=== PATIENT | female | born 1980 | race African-American/Black ===

== ENCOUNTER 2025-02-07 10:48 | Emergency (ER) | payer OTHER, SELFPAY ==
--- NOTE | ~2025-02-07 | XR_ITS ---
EXAMINATION: XR CHEST 2 VIEWS HISTORY: CP COMPARISON: There are no prior studies for comparison. FINDINGS: PA and lateral views of the chest are submitted. The lungs are expanded and clear. There is no pleural effusion, pneumothorax, or pulmonary vascular congestion. The heart is normal in size. The bones are intact. XR/XR chest 2V IMPRESSION: Normal examination of the chest. Electronically signed by: Jose Guadalupe Lemon MD 02/07/2025 11:59 AM EDT
--- NOTE | 2025-02-07 10:52 | ECG_ITS ---
Test Reason : CHEST PAIN Blood Pressure : */* mmHG Vent. Rate : 80 BPM Atrial Rate : 80 BPM P-R Int : 162 ms QRS Dur : 98 ms QT Int : 358 ms P-R-T Axes : 56 1 28 degrees QTcB Int : 412 ms Normal sinus rhythm Minimal voltage criteria for LVH, may be normal variant ( [place] product ) Borderline ECG When compared with ECG of 26-Jun-2012 10:56, No significant changes seen Referred By: Generic ED Physician Electronically Signed By: DAR CODY
[2025-02-07 11:18] VITALS: BP 138/83; PULSE 76; RESP 16; TEMP 36.6; O2SAT 99; BMI 36.3
--- NOTE | 2025-02-07 11:18 | ED_ITS ---
HPI - SOB/Dyspnea General Chief Complaint: General Medical Stated Complaint: Shortness Of Breath, Chest Pain Time Seen by Provider: 02/07/25 17:51 Source: patient Mode of arrival: ambulatory Limitations: no limitations History of Present Illness ED Provider: DR. Elias HPI Narrative: 44-year-old female otherwise healthy presented with neck pain radiating to the right shoulder for the past few weeks, declined any trauma or heavy lifting recently however patient stated that she go to chiropractor for scoliosis and she had recent neck manipulation by the chiropractor and the pain is been worse since then. 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 No history of smoking, asthma, or COPD. Related Data Previous Rx's ?Medication ?Instructions ?Recorded ibuprofen 600 mg tablet 600 mg PO Q6H PRN pain #14 tabs 02/07/25 Allergies Allergy/AdvReac Type Severity Reaction Status Date / Time lisinopril AdvReac Cough Verified 02/07/25 11:21 seasonal allergies Allergy Unknown Itching Uncoded 02/07/25 11:21 Review of Systems 2 Review of Systems: All other systems are reviewed and are negative Constitutional: Reports as per HPI and Reports no additional constitutional complaints Eyes: Reports as per HPI and Reports no additional eye complaints Reports system reviewed and no additional complaints, except as documented Cardiovascular: Reports as per HPI and Reports no additional cardiovascular complaints Respiratory: Reports as per HPI and Reports no additional respiratory complaints Gastrointestinal: Reports as per HPI and Reports no additional gastrointestinal complaints Genitourinary: Reports no additional female genitourinary complaints Musculoskeletal: Reports no additional musculoskeletal complaints Skin/Breast: Reports system reviewed and no additional complaints, except as docu Psychiatric: Reports no additional psychiatric complaints Endocrine: Reports no additional endocrine complaints Hematologic/Lymphatic: Reports no additional hematologic/lymphatic complaints Allergic/Immunologic: Reports no additional allergic/immunologic complaints Reports system reviewed and no additional complaints, except as documented and Reports Abnormal speech present [facility] Social History Social History Advance Directives: No Advance Directives Information Provided: Yes Physical Exam 2 Vital Signs: Vital Signs: Last Vital Signs Temp 97.9 F 02/07/25 16:44 Pulse 93 02/07/25 16:44 Resp 16 02/07/25 16:44 BP 162/92 H 02/07/25 16:44 Pulse Ox 98 02/07/25 16:44 O2 Del Method Room Air 02/07/25 16:44 BMI result Body Mass Index 36.3 Vital signs have been reviewed and appear to be correct. Blood pressure elevated. Heart rate normal. Respiratory rate normal. Temperature normal. Oxygen saturation normal. Appearance: Alert. Oriented X3. No acute distress. Head: Normal external exam. Normocephalic. Atraumatic. No [place] signs noted. No raccoon eyes noted Eyes: PERRLA. EOMI. Conjunctiva and sclera normal. Eyelids normal. ENT: TM's Normal. Pharynx normal. Uvula midline. Moist mucous membranes. No trismus noted. No drooling noted. No muffled voice noted. Neck: Normal inspection. Neck supple. FROM. No adenopathy. Thyroid Normal. No meningeal signs. No neck mass noted. CVS: Normal heart rate and rhythm. Heart sound normal. No murmurs noted. Pulses normal throughout. Respiratory: No respiratory distress. Painless inspiration. Breath sounds normal. No wheezes/rales/rhonchi noted. Chest nontender. No accessory muscle usage noted or decreased air movement noted. Abdomen: Soft and nontender. Bowel sounds normal in all 4 quadrants. No distention noted. No organomegaly noted. No visible injury noted. Back: No CVA tenderness. Full range of motion noted. Skin: Skin warm and dry. Normal skin color. Normal skin turgor. No rashes/lesions/lacerations noted. Extremities: Point of tenderness over right trapezius area, increased pain shooting to the right shoulder when patient turned her head to the left side or try to raise her arm above her head. Neuro: Oriented X 3. Cranial nerve exam: II-XII are grossly intact No motor deficit. No sensory deficit. Reflexes normal. Course Course Course Narrative: This is an RME: Additional HPI, ROS, PE not included below will be deferred to primary provider. RME assessment and note performed by: Sujata Hurtado PA-C This is a [id number], with a hx of HTN, anxiety/depression, who presents to the ER with complaints of shortness of breath for several weeks. Reports that that she feels as though her blood pressure has been elevated. Also reporting burning sensation in BL shoulders, right worse than left. Has been checking her BP at home and at work, reporting 139/89 readings. No recent travels, surgeries, or hospitalizations. She is on Ozempic for insulin resistance. Plan: Labs, EKG, chest xray, further ER eval needed Reevaluation(s) Reevaluation #1: Physical exam is consistent with cervical radiculopathy with no neurological deficits, chest x-ray is unremarkable, patient at low risk for pulmonary embolism with negative D-dimer. Patient feels better after was given injection of Toradol IM. Time: 19:00 Medical Decision Making Differential Diagnosis Differential Diagnoses: The differential diagnosis associated with the presentation includes (Cervical radiculopathy, pneumonia, pneumothorax, pleural effusion, CHF, pulmonary embolism, electrolyte derangement, severe anemia.) Admission/Observation Consideration of admission/observation: Escalation of care including admission/observation considered Lab Data MDM Lab Attestation statement: I reviewed the patient's lab results. 02/07/25 12:45 02/07/25 12:45 Labs: Lab Results 02/07/25 Range/Units 12:45 WBC 5.4 (4.8-10.8) X10*3/uL RBC 3.94 L (4.20-5.50) X10*6/uL Hgb 12.2 (12.0-16.0) g/dl Hct 35.8 L (37.0-47.0) % MCV 90.9 (80.0-98.0) fL MCH 31.0 (27.0-33.0) pg MCHC 34.1 (31.0-35.0) g/dl RDW 14.0 (11.0-16.0) % Plt Count 247 (160-400) X10*3/uL MPV 9.3 L (9.4-12.3) fL Immature Gran % (Auto) 0.2 (0.0-0.4) % Neut % (Auto) 48.8 (45-73) % Lymph % (Auto) 41.9 H (20-40) % Sharkey % (Auto) 6.7 (2-11) % Eos % (Auto) 1.7 (0-4) % Baso % (Auto) 0.7 (0-2) % Lymph # (Auto) 2.2 (1.2-4.9) X10*3/uL Sharkey # (Auto) 0.4 (0.1-1.2) X10*3/uL Eos # (Auto) 0.1 (0.0-0.4) X10*3/uL Baso # (Auto) 0.0 (0.0-0.2) X10*3/uL Abs Immat Gran (auto) 0.01 (0.00-0.03) X10*3/uL Absolute Neuts (auto) 2.6 (2.0-8.3) x10*3/uL Absolute Nucleated RBC 0.000 (0.0-0.012) X10*3/uL Nucleated RBC % (auto) 0.0 (0.0-0.2) /100WBC Sodium 138 (135-145) mmol/L Potassium 4.1 (3.3-5.1) mmol/L Chloride 110 H (96-108) mmol/L Carbon Dioxide 25 (22-29) mmol/L Anion Gap 7 L (12-20) BUN 18 H (9-16) mg/dL Creatinine 0.77 (0.5-1.4) mg/dL Estim Creat Clear Calc 116.2 Estimated GFR > 60 Random Glucose 83 (60-115) mg/dL Calcium 9.1 (8.4-10.2) mg/dL Magnesium 1.9 (1.6-2.6) mg/dL Total Bilirubin 0.5 (0.0-1.0) mg/dL Direct Bilirubin 0.2 (0.0-0.5) mg/dL AST 18 (5-31) U/L ALT 10 (0-31) U/L Alkaline Phosphatase 54 (39-117) U/L Troponin I High Sens < 2.7 (<3.5-17.0) ng/L B-Natriuretic Peptide < 10 (<100) pg/mL Total Protein 7.0 (6.5-8.0) g/dL Albumin 3.7 (3.5-5.0) g/dL Influenza Type A (PCR) NEGATIVE (Negative) Influenza Type B (PCR) NEGATIVE (Negative) RSV RNA Qual (PCR) NEGATIVE (Negative) SARS-CoV-2 RNA (RT-PCR) NEGATIVE (Negative) Independent Interpretation I performed an independent interpretation of an: Plain X-Ray (Chest: Normal chest examination) Radiology Impression Discussion of test interpretation with radiology: I have reviewed the radiologist's reading. Discharge Plan Discharge Clinical Impression: Cervical radiculopathy Patient Disposition: Home, Self-Care Instructions: Cervical Radiculopathy (ED) Prescriptions: New ibuprofen 600 mg tablet 600 mg PO Q6H PRN (Reason: pain) Qty: 14 0RF Referrals: Javier Tabor MD [Primary Care Provider] - Stand Alone Forms: Work/School Release Print Language: B[place]
[2025-02-07 12:54] LABS: MANUAL DIFF FLAG NO
[2025-02-07 12:55] LABS: Basophils Percent Auto 0.7 % (0-2); Eosinophils Absolute Auto 0.1 X10*3/uL (0.0-0.4); Eosinophils Percent Auto 1.7 % (0-4); Hematocrit 35.8 % (37.0-47.0); Hemoglobin 12.2 g/dl (12.0-16.0); Imm Gran Abs Auto 0.01 X10*3/uL (0.00-0.03); Imm Gran Pct Auto 0.2 % (0.0-0.4); Lymphocytes Absolute Auto 2.2 X10*3/uL (1.2-4.9); Lymphocytes Percent Auto 41.9 % (20-40); Mean Corpuscular HGB Conc 34.1 g/dl (31.0-35.0); Mean Corpuscular Volume 90.9 fL (80.0-98.0); Mean Platelet Volume 9.3 fL (9.4-12.3); Monocytes Absolute Auto 0.4 X10*3/uL (0.1-1.2); Monocytes Percent Auto 6.7 % (2-11); Neutrophils Absolute Auto 2.6 x10*3/uL (2.0-8.3); Neutrophils Percent Auto 48.8 % (45-73); Platelet Count 247 X10*3/uL (160-400); Red Blood Count 3.94 X10*6/uL (4.20-5.50); White Blood Count 5.4 X10*3/uL (4.8-10.8)
[2025-02-07 13:15] LABS: Alanine Aminotransferase 10 U/L (0-31); Albumin Level 3.7 g/dL (3.5-5.0); Alkaline Phosphatase 54 U/L (39-117); Anion Gap 7 (12-20); Aspartate Amino Transferase 18 U/L (5-31); Bilirubin Direct 0.2 mg/dL (0.0-0.5); Bilirubin Total 0.5 mg/dL (0.0-1.0); Blood Urea Nitrogen 18 mg/dL (9-16); Calcium 9.1 mg/dL (8.4-10.2); Carbon Dioxide 25 mmol/L (22-29); Chloride 110 mmol/L (96-108); Creatinine Clr Calc Pharmacy 116.2; Estimated Glomerular Filt Rate > 60; Glucose Random 83 mg/dL (60-115); Magnesium 1.9 mg/dL (1.6-2.6); Potassium 4.1 mmol/L (3.3-5.1); Sodium 138 mmol/L (135-145)
[2025-02-07 13:24] LABS: B Type Natriuretic Peptide < 10 pg/mL (<100)
[2025-02-07 13:30] LABS: Influenza A PCR NEGATIVE (Negative); Influenza B PCR NEGATIVE (Negative); Resp Syncy Virus RNA Qual PCR NEGATIVE (Negative); SARS COV2 PCR INHOUSE NEGATIVE (Negative)
[2025-02-07 14:44] LABS: Troponin-I High Sensitivity < 2.7 ng/L (<3.5-17.0)
[2025-02-07 16:44] VITALS: BP 162/92; PULSE 93; RESP 16; TEMP 36.6; O2SAT 98
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
--- OUTSIDE RECORDS SUMMARY | 2025-02-07 18:13 | XMS_ITS | Clinical Summary ---
Author Organization [facility] Address [address] [place] [address] Phone Care Team Providers Care Lumber Straightened Name Role Phone Javier Tabor MD Primary Care Provider [phone] Allergies No known active allergies Medications atenoloL (TENORMIN) 25 mg tablet Take 1 tablet (25 mg total) by mouth 1 (one) time each day. Active buPROPion XL (WELLBUTRIN XL) 150 mg 24 hr tablet Take 2 tablets (300 mg total) by mouth 1 (one) time each day in the morning. for 30 days 0 Active clonazePAM (KlonoPIN) 1 mg tablet Take 1 tablet (1 mg total) by mouth 2 (two) times a day if needed. Max Daily Amount: 2 mg Active clonazePAM (KlonoPIN) 2 mg tablet Take 1 tablet (2 mg total) by mouth 2 (two) times a day if needed. Max Daily Amount: 4 mg Active cloNIDine (CATAPRES-TTS- 2) 0.2 mg/[address] the skin. Place onto the skin Active simethicone (MYLICON) 80 mg chewable tablet Chew 1 tablet (80 mg total) every 6 (six) hours if needed for flatulence. FOR UP TO 30 DAYS 2 Active losartan (COZAAR) 100 mg tablet Take 1 tablet (100 mg total) by mouth 1 (one) time each day. Active meloxicam (MOBIC) 15 mg tablet Take 1 tablet (15 mg total) by mouth 1 (one) time each day. Active acetaminophen (TYLENOL) 500 mg tablet Take 2 tablets (1,000 mg total) by mouth every 8 (eight) hours. 2 Active pantoprazole (PROTONIX) 40 mg EC tablet Take 1 tablet (40 mg total) by mouth 1 (one) time each day. 3 Active hydrOXYzine HCL (ATARAX) 25 mg tablet Take by mouth. Active semaglutide (Ozempic) 1 mg/dose (4 mg/3 mL) injection pen INJECT 1 MG UNDER THE SKIN EVERY 7 (SEVEN) DAYS. 3 mL 5 Active semaglutide (Ozempic) 1 mg/dose (4 mg/3 mL) injection pen INJECT 1 MG UNDER THE SKIN EVERY 7 (SEVEN) DAYS. 3 mL 5 01/30/20 25 Discontinued Active Problems Problem Noted Date Diagnosed Date Anxiety 08/15/2024 Depression 08/15/2024 Hypertension 08/15/2024 Panic attacks 08/15/2024 Class 2 severe obesity due t o excess calories with serious comorbidity and body mass index (BMI) of 35.0 to 35.9 in adult 08/15/2024 Obesity 05/08/2019 Encounters Date Type Department Care Team Description 01/02/2025 2:15 PM EST Office Visit Bariatric Surgery - [address] [address] Kelsea Mustafa PA Class 2 severe obesity due to excess calories with serious comorbidity and body mass index (BMI) of 35.0 to 35.9 in adult ([facility]) (Primary Dx) from Last 3 Months Surgical History Surgery Date Site/Laterality Comments OTHER SURGICAL HISTORY 05/08/2022 PROCEDURE: ---- OTHER ----; COMMENT: Gastric sleeve Medical History Medical History Date Comments Anxiety DX:Anxiety Depression DX:Depression Panic attacks DX:Panic attacks Hypertension DX:Hypertension Family History Medical History Relation Name Comments Diabetes Father Diabetes Mother Hypertension Mother Diabetes Sister Relation Name Status Comments Father Mother Sister Social History Tobacco Use Types Packs/Day Years Used Date Smoking Tobacco: Never Smokeless Tobacco: Never Tobacco Cessation:Counseling Given: Not Answered Alcohol Use Standard Drinks/Week Comments Yes 0 (1 standard drink = 0.6 oz pur e alcohol) Comments Unknown Sex and Gender Information Value Date Recorded Sex Assigned at Not on file Legal Sex Female 11:54 AM EST Gender Identity Not on file Sexual Orientation Not on file Obstetrics History Last Filed Vital Signs Vital Sign Reading Time Taken Comments Blood Pressure 130/83 01/02/2025 2:21 PM EST Pulse 76 01/02/2025 2:21 PM EST Temperature - - Respiratory Rate - - Oxygen Saturation - - Inhaled Oxygen Concentration - - Weight 105 kg (232 lb 3.2 oz) 01/02/2025 2:21 PM EST Height 171.5 cm (5' 7.5 ) 01/02/2025 2:21 PM EST Body Mass Index 35.83 01/02/2025 2:21 PM EST Plan of Treatment Health Maintenance Due Date Last Done Comments Breast Cancer Screening 1980 Cervical Cancer Screening: Pap Smear 2001 Depression Screening 10/06/2022 HIV Screening 10/06/2022 Social Influencers of Health Screening 10/06/2022 Hypertension/CHF/CAD Annual BMP Blood Test 07/21/2024 07/21/2023, 12/27/2017 Hepatitis B Vaccines (3 of 3 - Hep B Twinrix 3-dose series) 05/29/2025 12/30/2024, 08/05/2024 Cholesterol Screening (Lipid Panel) 02/24/2026 02/24/2021 DTaP,Tdap,and Td Vaccines (5 - Td or Tdap) 07/10/2030 07/10/2020, 08/11/2019, 10/11/2012, Additional history exists Hepatitis C Screening Completed 12/27/2017 Influenza Vaccine Completed 08/05/2024, , 08/03/2022, Additional history exists COVID-19 Vaccine Completed 12/30/2024, 04/2024, 10/09/2022, Additional history exists Hepatitis A Vaccines Aged Out 12/30/2024, 08/05/20 24 No longer eligible based on patient's age to complete this topic MMR Vaccines Aged Out 12/30/2024 No longer eligi ble based on patient's age to complete this topic HIB Vaccines Aged Out No longer eligi ble based on patient's age to complete this topic HPV Vaccines Aged Out No longer eligi ble based on patient's age to complete this topic IPV Vaccines Aged Out No longer eligi ble based on patient's age to complete this topic Meningococcal ACWY Vaccine Aged Out N o longer eligible based on patient's age to complete this topic Meningococcal B Vacine Aged Out No lo nger eligible based on patient's age to complete this topic Pneumococcal Vaccine: Pediatrics (0 to 5 Years) and At-Risk Patients (6 to 64 Years) Aged Out No longer eligible based on patient's age to complete this topic RSV Immunization Patients Under 20 months Aged Out No longer eligible based on patient's age to complete this topic Varicella Vaccines Aged Out No longer eligible based on patient's age to complete this topic Procedures Procedure Name Priority Date/Time Associated Diagnosis Comments ANNUAL BMP BLOOD TEST Routine 07/21/2023 LIPID PANEL Routine 02/24/2021 from Last 3 Months or Most Recently Relevant to Health Maintenance Results * Annual BMP Blood Test (07/21/2023) Annual BMP Blood Test abstracted Historical Provider HEALTH MAINTENANCE Final Result * Lipid panel (02/24/2021) LDL/HDL Ratio 3 0 - 4 Triglycerides 49 0 - 150 mg/dL Cholesterol 181 0 - 200 mg/dL HDL 73 >=40 mg/dL LDL Cholesterol 99 0 - 100 mg/dL Blood Venous blood specimen / Unknown Historical Provider LAB BLOOD ORDERABLES Jessica l Result from Last 3 Months or Most Recently Relevant to Health Maintenance Insurance [facility] [employer] MEDICA[employer] Care Teams Lumber Straightened Relationship Specialty Start Date End Date Javier Tabor MD [address] [place] [address] PCP - General Internal Medicine 08/02/19
[2025-02-07] MEDS: Ketorolac Tromethamine 30 MG/ML VIAL IM (18:29)
[2025-02-07 18:32] VITALS: BP 148/91; RESP 16; O2SAT 100
[2025-02-07 19:23] LABS: D Dimer High Sensitivity < 150 NG/ML
[2025-02-07 19:47] VITALS: BP 153/82; PULSE 70; RESP 20; TEMP 36.8; O2SAT 99
[2025-02-07 21:24] VITALS: BP 153/82; PULSE 70; RESP 20; TEMP 36.8; O2SAT 99
== END 2025-02-07 21:25 | disposition home or self-care (01) ==
PROVIDERS: Physician Assistant Medical; Emergency Provider Emergency Medicine; PCP Internal Medicine
DX: M54.12 Radiculopathy, cervical region (principal); R06.02 Shortness of breath; R07.89 Other chest pain; M54.2 Cervicalgia; Z03.818 Encounter for observation for suspected exposure to other biological agents ruled out; Z79.899 Other long term (current) drug therapy
CPT/HCPCS: 0241U; 36415; 71046; 80048; 80076; 83735; 83880; 84484; 85025; 85379; 93005; 96372; 99284; J1885

== ENCOUNTER → 2025-02-07 10:52 | Outpatient (BNV) | payer OTHER, SELFPAY | PROVIDERS: Emergency Provider Emergency Medicine; PCP Internal Medicine; Visit Provider Internal Medicine | DX: R07.9 Chest pain, unspecified (principal) | CPT/HCPCS: 93010 ==

== ENCOUNTER → 2025-02-07 11:23 | Outpatient (BNV) | payer OTHER, SELFPAY | PROVIDERS: PCP Internal Medicine; Visit Provider Radiology Diagnostic Radiology | DX: R07.9 Chest pain, unspecified (principal) | CPT/HCPCS: 71046 ==